=== PATIENT | male | born 1995 | race Caucasian/White ===

== ENCOUNTER 2023-05-28 13:00 | Emergency (ER) | payer OTHER ==
[~2023-05-28] VITALS: Ht 180.3 cm; Wt 80.7 kg
[2023-05-28 13:15] VITALS: TEMP 98.2; O2SAT 98
[2023-05-28 14:19] LABS: BASOPHILS % 0.5 % (0.0-2.0); EOSINOPHILS % 0.7 % (0.0-5.0); HEMATOCRIT. 41.3 % (42.0-52.0); HEMOGLOBIN. 14.1 g/dL (14.0-18.0); LYMPHOCYTES % 18.9 % (20.0-50.0); MEAN CORPUSCULAR HEMOGLOBIN 33.6 pg (28.0-32.0); MEAN CORPUSCULAR HGB CONC 34.1 g/dL (31.0-37.0); MEAN CORPUSCULAR VOLUME 98.4 fL (80.0-94.0); MEAN PLATELET VOLUME 9.1 fl (7.4-10.4); MONOCYTES % 6.8 % (2.0-8.0); NEUTROPHILS % 73.1 % (40.0-76.0); PLATELET 254 x1000/uL (130-400); RED CELL DISTRIBUTION WIDTH 13.9 % (11.6-14.6); WHITE BLOOD COUNT 6.7 x1000/uL (4.5-11.0)
[2023-05-28 14:35] LABS: ALANINE AMINOTRANSFERASE 29 IU/L (10-49); ALBUMIN 4.4 g/dL (3.2-4.8); ASPARTATE AMINOTRANSFERASE 18 IU/L (<34); BILIRUBIN TOTAL 1.6 mg/dL (0.1-1.0); CALCIUM 9.3 mg/dL (8.7-10.4); CARBON DIOXIDE 24 mEq/L (21-32); CHLORIDE 101 mEq/L (98-107); CREATININE 0.7 mg/dL (0.6-1.3); GLUCOSE 274 mg/dL (70-105); POTASSIUM 4.1 mEq/L (3.5-5.1); PROTEIN TOTAL 7.5 g/dL (6.0-8.3); SODIUM 135 mEq/L (136-145); UREA NITROGEN BLOOD 12 mg/dL (9-23)
[2023-05-28] MEDS ORDERED: CLOT15CR27 TP (18:05)
[2023-05-28 18:15] VITALS: BP 133/90; PULSE 80; RESP 16
== END 2023-05-28 18:17 | disposition home or self-care (01) ==
LOC: ER 13:00
DX: E11.65 Type 2 diabetes mellitus with hyperglycemia (principal); B35.6 Tinea cruris
CPT/HCPCS: 36415; 80053; 82962; 85025; 99283